=== PATIENT | female | born 1985 | race Caucasian/White ===

== ENCOUNTER 2020-01-07 01:15 | Outpatient (CLI) | payer OTHER, SELFPAY ==
[2020-01-07 19:20] LABS: SARS-CoV-2 RNA PCR Negative
== END 2020-01-07 01:16 | disposition home or self-care (01) ==
LOC: ANHCOVIDDT 01:16
PROVIDERS: PCP Internal Medicine; Visit Provider Surgery
DX: Z01.812 Encounter for preprocedural laboratory examination (principal); Z20.828 Contact with and (suspected) exposure to other viral communicable diseases
CPT/HCPCS: 87635; C9803; U0003

== ENCOUNTER 2020-01-09 01:01 | Day surgery (SDC) | payer OTHER, SELFPAY ==
[2019-12-30 09:15] VITALS: BMI 19.5
[2020-01-09] VITALS (8 sets, daily range): BP systolic 99–126; BP diastolic 51–80; PULSE 55–75; RESP 12–20; TEMP 36.3–36.7; O2SAT 100
[2020-01-09] MEDS: LACTATED RINGERS 1,000 ML 30 ML IV CONT (12:34)
[2020-01-09] MEDS: ACETAMINOPHEN 500 MG TABLET 1000 MG PO (12:35)
[2020-01-09] MEDS: KETOROLAC 15 MG/ML VIAL (*BKC) IV PUSH (12:35)
--- NOTE | 2020-01-09 13:09 | PM.IMHP ---
H&P: HPI History of Present Illness Date/Time: 01/09/20 13:09 Chief complaint: umbilical hernia Narrative: Elba Platt is a 34 year old female who presented with pain and swelling at her umbilicus. She was found to have an umbilical hernia on exam. Review of Systems Review of Systems: All systems reviewed & are unremarkable except as noted in HPI and below Constitutional: Constitutional: Denies chills, Denies fever(s), Denies headache(s) and Denies weight loss Eyes: Eyes: Denies change in vision ENT: Denies dizziness, Denies headache(s), Denies neck mass and Denies throat swelling Cardiovascular: Cardiovascular: Denies chest pain, Denies lightheadedness and Denies dyspnea Respiratory: Respiratory: Denies cough, Denies dyspnea and Denies wheezing Gastrointestinal: Gastrointestinal: Denies abdominal pain, Denies change in bowel habits, Denies nausea and Denies vomiting Genitourinary: Genitourinary: Denies hematuria and Denies dysuria Musculoskeletal: Musculoskeletal: Reports as per HPI Integumentary/Breasts: Skin/Breast: Reports as per HPI Neurologic: Denies dizziness and Denies headache(s) Allergic/Immunologic: Allergic/Immunologic: Denies throat swelling and Denies wheezing PMFSH Surgical History Surgical History H/O tubal ligation History of arthroscopic knee surgery left History of Family History Family History Grandparent Diabetes mellitus, Onset Age: 90 Family history of malignant neoplasm of breast Family history of coronary artery disease, Onset Age: 54 Social History Social History Smoking status: Never smoker Second hand tobacco smoke exposure: No Alcohol intake: current Drinks per week: 3 Substance use: never Additional occupation/education comments: [employer] Spiritual care concerns: No Meds Home Medications and Allergies Home Medications Medication Instructions Recorded Confirmed Type levonorgestrel [Mirena] 1 device INTRAUTERINE ONCE 12/30/19 01/09/20 History zinc 50 mg PO DAILY 12/30/19 01/09/20 History Allergies Allergy/AdvReac Type Severity Reaction Status Date / Time No Known Allergies Allergy Verified 12/30/19 09:15 Vital Signs Vital Signs - 24 hr 01/09/20 12:30 Temperature 36.7 C Pulse Rate 66 Blood Pressure 126/72 Pulse Oximetry 100 Exam Const: General: no acute distress and alert Orientation/consciousness: patient oriented x3 HENMT: Head: normocephalic and atraumatic Ears: hearing grossly normal bilaterally General nose exam: Normal nares present Mouth: Yes Normal oral and palatal mucosa present Eyes: Periorbital: periorbital findings normal Sclera: sclerae normal EOM: EOMs intact bilaterally Neck: Neck: normal visual inspection, no lymphadenopathy and trachea midline Chest: Chest palpation & inspection: normal inspection of the chest Resp: Effort & Inspection: normal respiratory effort Auscultation: clear to auscultation bilaterally Cardio: Jugular venous distension: no JVD Rate: regular rate Rhythm: regular rhythm Heart sounds: S1 normal heart sound present and S2 normal heart sound present Peripheral pulses: Peripheral pulses 2+ throughout GI: Inspection: normal to inspection GI Palp: Yes Soft to palpation, No Tenderness to palpation present (GI), No Guarding due to palpation present (GI), Yes Hernia present (1cm umbilical hernia containing fat, not reducible) and No Rebound tenderness present Percussion: Yes normal to percussion Auscultation: normal bowel sounds : General: Yes no CVA tenderness Back/Spine/Pelvis: Back: no CVA tenderness Neuro: General: patient oriented x3, no focal motor deficits and CN's II-XI intact bilaterally Cognition (Neuro): normal cognition Speech: normal speech Motor exam (aayush
--- NOTE | 2020-01-09 13:12 | P.PNAN_ITS ---
Anes - Initial Pre Proc Eval Procedure: Operation Date: 01/09/20 13:30 Proposed Procedures p Umbilical Hernia Repair, Possible Mesh - Vito Rosario DO Date/Time: 01/09/20 13:12 Surgeon: Vito Rosario DO Pre Op Diagnosis: umbilical hernia Patient Data Age: 34 Gender: F Height: 5 ft 3 in Weight: 55.3 kg Last Vital Signs Temp 36.7 C 01/09/20 12:30 Pulse 66 01/09/20 12:30 BP 126/72 01/09/20 12:30 Pulse Ox 100 01/09/20 12:30 Allergies Allergy/AdvReac Type Severity Reaction Status Date / Time No Known Allergies Allergy Verified 12/30/19 09:15 Home Medications Medication Instructions Recorded Confirmed Type levonorgestrel [Mirena] 1 device INTRAUTERINE ONCE 12/30/19 01/09/20 History zinc 50 mg PO DAILY 12/30/19 01/09/20 History Patient hx anesthesia problems: none Family hx anesthesia problems: none PMFSH Surgical History Surgical History H/O tubal ligation History of arthroscopic knee surgery left History of Family History Family History Grandparent Diabetes mellitus, Onset Age: 90 Family history of malignant neoplasm of breast Family history of coronary artery disease, Onset Age: 54 Social History Social History Smoking status: Never smoker Second hand tobacco smoke exposure: No Alcohol intake: current Drinks per week: 3 Substance use: never 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 Questions were solicited and answers provided to the satisfaction of the patient/family/POA.
[2020-01-09] MEDS: SCOPOLAMINE 1.5 MG PATCH TRANSDERM (13:21)
[2020-01-09] MEDS: ceFAZolin 2 GM/D5W 50 ML 2 GM/50 ML BAG IVPB (13:25)
[2020-01-09] MEDS: BUPIVACAINE/EPINEPHRINE 0.5% 30 ML VIAL INFILTRATE (13:42)
--- NOTE | 2020-01-09 14:03 | P.OP_ITS ---
Procedure Note - Detailed Date of procedure: 01/09/20 Pre-op diagnosis: umbilical hernia Post-op diagnosis: other (Incarcerated umbilical hernia) Procedure performed: Incarcerated umbilical hernia repair Description of procedure: * Procedure as well as risks, benefits, and alternatives were discussed with the patient. Written consent was obtained and placed in chart prior to procedure. Patient was brought back to surgical suite. She was placed supine on operating table. She was then intubated by Anesthesia Department. Her abdomen was prepped and draped in sterile fashion using chlorhexidine prep. 0.5% bupivacaine with epinephrine was infiltrated locally around the operative area. A 3 cm curvilinear incision was made just inferior to the umbilicus using a 15 blade scalpel. Electrocautery was used for hemostasis and for dissection down through the subcutaneous fat. Hernia sac was encountered and this was carefully freed up from surrounding subcutaneous fat using electrocautery. The hernia sac was freed up all the way down to the level of the fascia, and then it was transected using electrocautery. The hernia sac was excised and sent to the lab for pathology. The umbilical stalk was then lifted off of the fascia with electrocautery. The hernia defect was then measured. This was measuring approximately 5 mm. The decision was made to repair the hernia primarily. The fascia of the hernia defect was then reapproximated using 0 Ethibond [id number] sutures. A total of 2 sutures were placed transversely to approximate the fascia. 0.5% bupivacaine with epinephrine was infiltrated around the fascia and subcutaneous space. The umbilical stalk was then reapproximated to the fascia using a 3 0 Vicryl simple interrupted suture. The deep dermis was reapproximated using 3 0 Vicryl simple interrupted sutures, and then the skin was approximated using 4 Monocryl running subcuticular suture. Exofin glue was then applied on top. The patient was then awakened from anesthesia, extubated, and transferred to recovery. Anesthesia: local (0.5% bupivacaine with epinephrine) Surgeon: Vito Rosario DO Estimated blood loss (mL): 5 Pathology: yes (Hernia sac) Complications: No immediate complications Condition: stable Disposition: same day Findings: Ms. Platt presents for umbilical hernia repair. She developed a hernia during her with he last child four years ago. She has quite a bit of tenderness during her , but after she delivered, associated discomfort improved. Recently, primarily with physical activity and when working out, she has noticed a slight increase in size of the hernia and tenderness. She was found to have an umbilical hernia on exam and this was difficult to reduce. Discussions were made with the patient about treatment options and decision was made to proceed with umbilical hernia repair with possible mesh. Umbilical hernia repair was performed. The patient was found to have an incarcerated umbilical hernia containing preperitoneal fat and omentum. The hernia sac was excised and sent to the lab for pathology. The hernia defect only measured approximately 5 mm wide. Decision was made to repair this primarily without mesh. 0 Ethibond [id number] sutures were placed transversely to approximate the fascia without tension. A total of 2 sutures were placed. The repair appeared secure and no other abnormalities were noted.
== END 2020-01-09 15:45 | disposition home or self-care (01) ==
PROVIDERS: PCP Internal Medicine; Visit Provider Surgery
PROC: (CPT 49587; principal; 2020-01-09 13:30)
DX: K42.0 Umbilical hernia with obstruction, without gangrene (principal)
CPT/HCPCS: 49587; 88300; A9270; J0690; J1100; J1885; J2250; J2405; J2704; J3010; J7120